=== PATIENT | female | born 1940 | race Hispanic/Latino ===

== ENCOUNTER 2023-12-09 07:08 | Emergency (ER) | payer MEDICARE ==
[~2023-12-09] VITALS: Ht 162.6 cm; Wt 90.7 kg
[2023-12-09] MEDS: guaiFENesin-coDEINE 5 ML SYRUP PO ONE (08:06)
[2023-12-09 08:26] LABS: RAPID GROUP A STREP negative (NEGATIVE)
[2023-12-09 08:27] LABS: SARS-CoV-2, RNA, NAAT POSITIVE SARS CoV-2 (NEGATIVE)
[2023-12-09] MEDS ORDERED: dexaMETHasone ORAL SUSP 1 MG/ML 30ML BTL PO STA (08:31)
[2023-12-09] MEDS: acetaMINOPHEN/coDEINE 120/12MG 5ML PO STA (08:33)
[2023-12-09 08:35] LABS: INFLUENZA TYPE A Negative For Type A (NEGATIVE); INFLUENZA TYPE B Negative For Type B (NEGATIVE)
[2023-12-09] MEDS ORDERED: DEXA6TAB PO (08:35)
[2023-12-09] MEDS ORDERED: MOLN200C PO (08:35)
[2023-12-09] MEDS: dexaMETHasone 4 MG TAB PO ONE (08:40)
[2023-12-09 08:51] VITALS: BP 136/61; PULSE 81; RESP 18; TEMP 98.1; O2SAT 98
[2023-12-09] MEDS ORDERED: ALBU18HF7 IH (08:57)
== END 2023-12-09 09:08 | disposition home or self-care (01) ==
LOC: EDH 07:08
DX: U07.1 COVID-19 (principal); E78.00 Pure hypercholesterolemia, unspecified; I11.9 Hypertensive heart disease without heart failure; J45.909 Unspecified asthma, uncomplicated; Z79.899 Other long term (current) drug therapy; Z90.49 Acquired absence of other specified parts of digestive tract; Z90.710 Acquired absence of both cervix and uterus; Z98.890 Other specified postprocedural states
CPT/HCPCS: 99284; 71045; 87635; 87880; 87804 ×2; J8540